=== PATIENT | male | born 1950 | race Caucasian/White ===

== ENCOUNTER 2024-03-18 12:05 | Emergency (ER) | payer OTHER, MEDICARE ==
[2024-03-18] MEDS ORDERED: Sodium Chloride 0.9% 10 ML Syringe FLUSH PRN (12:27)
[2024-03-18] MEDS: Aspirin 81 MG Tab.Chew PO ONE (12:35)
[2024-03-18 12:37] LABS: BASOPHILS PERCENT AUTO 0.8 % (0.2-1.2); EOSINOPHILS ABSOLUTE AUTO 0.2 x10^3/uL (0.0-0.5); EOSINOPHILS PERCENT AUTO 3.4 % (0.0-4.0); HEMATOCRIT 44.3 % (40.0-52.0); HEMOGLOBIN 15.5 g/dL (14.0-18.0); IMMATURE GRAN ABSOLUTE AUTO 0.01 x10^3/uL (0.00-0.07); LYMPHOCYTES ABSOLUTE AUTO 1.2 x10^3/uL (1.0-4.8); LYMPHOCYTES PERCENT AUTO 22.4 % (25.0-50.0); MEAN CORPUSCULAR HEMOGLOBIN 32.2 pg (26.0-32.0); MEAN CORPUSCULAR VOLUME 91.9 fL (78.0-93.0); MONOCYTES ABSOLUTE AUTO 0.7 x10^3/uL (0.0-0.8); MONOCYTES PERCENT AUTO 13.5 % (2.0-11.0); NEUTROPHILS ABSOLUTE AUTO 3.2 x10^3/uL (1.8-7.7); NEUTROPHILS PERCENT AUTO 59.7 % (50.0-80.0); PLATELET COUNT,PLT 226 x10^3/uL (130-400); RED BLOOD CELL COUNT 4.82 x10^6/uL (4.5-6.0); WHITE BLOOD CELL COUNT,WBC 5.3 x10^3/uL (4.0-10.0)
[2024-03-18 12:57] LABS: INR 1.1 (0.9-1.1); PROTHROMBIN TIME 10.7 SEC (8.9-11.5); PTT,PARTIAL THROMBOPLSTIN TIME 25.2 SEC (21.9-33.8)
[2024-03-18] MEDS: Nitroglycerin 0.4 MG Tab.SL SL ONE (13:01)
[2024-03-18 13:06] LABS: A/G RATIO 1.16; ALBUMIN 3.7 g/dL (3.4-5.0); BILIRUBIN TOTAL 0.9 mg/dL (0.2-1.0); CALCIUM 9.4 mg/dL (8.5-10.1); CREATININE 1.1 mg/dL (0.70-1.30); EST CRCL DRUG DOSING (CG) 67.61 mL/min; PROTEIN TOTAL,TP 6.9 g/dL (6.4-8.2)
== END 2024-03-18 13:39 | disposition home or self-care (01) ==
LOC: VM.ED 12:05
DX: R07.9 Chest pain, unspecified (principal); Z79.899 Other long term (current) drug therapy
CPT/HCPCS: 36415; 71045; 80053; 83735; 83880; 84484; 85025; 85610; 85730; 93005; 99285; A9270; 93010; 99284